=== PATIENT | male | born 1990 | race Caucasian/White ===

== ENCOUNTER 2017-01-04 06:54 | Day surgery (SDC) | payer OTHER ==
[~2017-01-04] VITALS: Ht 170.2 cm; Wt 99.8 kg
[~2017-01-04 06:54] MED LIST: CARAFATE1 GM PO; OMEPRAZOLE40 MG PO; REGLAN10 MG PO
--- NOTE | 2017-01-04 08:19 | NUR ---
PT RESTING, ALERT, ORIENTED AND SUPPORTED BY HIS PARENTS. HE WAS ALITTLE ANXIOUS, BUT SEEMED TO BE DEALING WITH HIS SITUATION APPROPRIATELY. PT SEEMED PREPARED, HAD FEW QUESTIONS, AND HIS MOTHER REQUESTED I PRAY, WHICH I DID AT THE PT'S CONSENT. WILL FOLLOW NEEDED
--- NOTE | 2017-01-04 09:12 | NUR ---
01/04/17 0912 Leonardo Carroll PT SLEEPING, SAT 97%. O2 TURNED OFF.
== END 2017-01-04 10:08 | disposition home or self-care (01) ==
LOC: OPS 06:54 → DS 06:54 → OPS 10:08
PROVIDERS: Colon & Rectal Surgery
PROC: 0DB68ZX Excision of Stomach, Via Natural or Artificial Opening Endoscopic, Diagnostic (ICD-10-PCS; 2017-01-04)
PROC: 0DJD8ZZ Inspection of Lower Intestinal Tract, Via Natural or Artificial Opening Endoscopic (ICD-10-PCS; principal; 2017-01-04 09:00)
PROC: 0DB48ZX Excision of Esophagogastric Junction, Via Natural or Artificial Opening Endoscopic, Diagnostic (ICD-10-PCS; 2017-01-04 09:00)
DX: K29.51 Unspecified chronic gastritis with bleeding (principal); K20.9 Esophagitis, unspecified; K64.8 Other hemorrhoids; G43.909 Migraine, unspecified, not intractable, without status migrainosus; Z80.0 Family history of malignant neoplasm of digestive organs; Z87.11 Personal history of peptic ulcer disease; Z90.89 Acquired absence of other organs; Z87.891 Personal history of nicotine dependence; Z79.899 Other long term (current) drug therapy
CPT/HCPCS: 86677; 99152; 99153; J2250; J3010; J7120